=== PATIENT | male | born 2000 | race Hispanic/Latino ===

== ENCOUNTER 2022-11-07 09:52 | Emergency (ER) | payer SELFPAY ==
[2022-11-07] MEDS ORDERED: Ondansetron PF 4 MG/2 ML Vial ONE (10:23)
[2022-11-07] MEDS ORDERED: Morphine 4 MG/ML VIAL ONE (10:23)
== END 2022-11-07 12:16 | disposition home or self-care (01) ==
LOC: BURERS 09:52
DX: S92.001A Unspecified fracture of right calcaneus, initial encounter for closed fracture (principal); S52.572A Other intraarticular fracture of lower end of left radius, initial encounter for closed fracture; S52.615A Nondisplaced fracture of left ulna styloid process, initial encounter for closed fracture; W17.89XA Other fall from one level to another, initial encounter
CPT/HCPCS: 72100; 96374; 96375; J2270; J2405